=== PATIENT | female | born 1965 | race Caucasian/White ===

== ENCOUNTER 2017-08-25 08:37 | Emergency (ER) | payer OTHER ==
[~2017-08-25] VITALS: Ht 160 cm; Wt 73.5 kg
--- OUTSIDE RECORDS SUMMARY | ~2017-08-25 | XMS | Clinical Summary ---
Demographics + + + | Address | [address] [facility] | | | [place] [address] | + + + | Home Phone | | + + + | Preferred Language | Unknown | + + + | Marital Status | | + + + | Scientologist Affiliation | 1041 | + + + | Race | Unknown | + + + | Ethnic Group | Unknown | + + + Author + + + | Author | [facility] | + + + | Organization | [facility] | + + + | Address | Unknown | + + + | Phone | Unavailable | + + + Support + + +---------+ + | Name | Relationship | Address | Phone | + + +---------+ + | Reginaldo Reese | ECON | Unknown | | + + +---------+ + Care Team Providers + +------+ + | Care Cycle Repairer Name | Role | Phone | + +------+ + | Felipe Banda DO | PP | | + +------+ + Allergies + + + + + + | Active Allergy | Reactions | Severity | Noted | Comments | | | | | Date | | + + + + + + | Codeine | Shortness of Breath, | High | 03/15/20 | sweating | | | Nausea and | | 14 | | | | Vomiting, Other (See | | | | | | Comments) | | | | + + + + + + Current Medications Not on file Active Problems Not on file Social History + +-------+ +--------+------+ | Tobacco Use | Types | Packs/Day | Years | Date | | | | | Used | | + +-------+ +--------+------+ | Never Assessed | | | | | + +-------+ +--------+------+ + + + | Sex Assigned at | Date Recorded | | | | + + + | Not on file | | + + + Last Filed Vital Signs + + + + | Vital Sign | Reading | Time Taken | + + + + | Blood Pressure | - | - | + + + + | Pulse | - | - | + + + + | Temperature | - | - | + + + + | Respiratory Rate | - | - | + + + + | Oxygen Saturation | - | - | + + + + | Inhaled Oxygen | - | - | | Concentration | | | + + + + | Weight | 79.8 kg (176 lb) | 12/20/2015 8:40 AM PDT | + + + + | Height | 160 cm (5' 3") | 12/20/2015 8:40 AM PDT | + + + + | Body Mass Index | 31.18 | 12/20/2015 8:40 AM PDT | + + + + Plan of Treatment Not on file Results Not on filefrom Last 3 Months Insurance +--------+--------+ +------+ +---------+ | Payer | Benefi | Subscriber | Type | Phone | Address | | | t Plan | ID | | | | | | / | | | | | | | Group | | | | | +--------+--------+ +------+ +---------+ | ASURIS | HMA | xxxxxxxxxxx | | [phone] | | | INSURA | [phone] | | | | NCE | | | | | +--------+--------+ +------+ +---------+ + +--------+ +--------+ + + | Guarantor Name | Accoun | Relation to | Date | Phone | Billing Address | | | t Type | Patient | of | | | | | | | | | | + +--------+ +--------+ + + | EMILIA REESE | Person | Self | [birth year] | Home: | [address] [place] [address] | | | al/Fam | | 1966 | [phone] | [place] | | | ace | | | [phone] | [phone] | + +--------+ +--------+ + +
--- OUTSIDE RECORDS SUMMARY | ~2017-08-25 | XMS | Clinical Summary ---
Demographics + + + | Address | [address] | | | [place] [address] | + + + | Home Phone | | + + + | Preferred Language | Unknown | + + + | Marital Status | | + + + | Pentecostalism Affiliation | Unknown | + + + | Race | White | + + + | Ethnic Group | Not or | + + + Author + + + | Author | [facility] | + + + | Organization | [facility] | + + + | Address | Unknown | + + + | Phone | Unavailable | + + + Support + + + + + | Name | Relationship | Address | Phone | + + + + + | ABEL REESE | ECON | [address] | | | | | [place] | | | | | [address] | | + + + + + Care Team Providers + +------+ + | Care Four Horse Hitch Driver Name | Role | Phone | + +------+ + | Horacio Banda DO | PP | | + +------+ + Source Comments GABBY is fully live on both EpicCare Ambulatory and EpicCare InPatient.[facility] Allergies + + + + + + | Active Allergy | Reactions | Severity | Noted | Comments | | | | | Date | | + + + + + + | Codeine | Airway Constriction | | 07/20/19 | | | | | | 15 | | + + + + + + Current Medications + + +-------+---------+------+------+-------+ | Prescription | Sig. | Disp. | Refills | Star | End | Statu | | | | | | t | Date | s | | | | | | Date | | | + + +-------+---------+------+------+-------+ | | Take 1 tablet by | | | | | Activ | | HYDROcodone-acetamin | mouth every four | | | | | e | | ophen 10-325 mg oral | hours as needed. Not | | | | | | | tablet | to exceed 3250 mg | | | | | | | | of acetaminophen | | | | | | | | from all products | | | | | | | | per 24 hour period. | | | | | | + + +-------+---------+------+------+-------+ | pregabalin 50 mg | Take by mouth two | | | | | Activ | | oral capsule | times daily. Max: | | | | | e | | | 600 mg/day | | | | | | + + +-------+---------+------+------+-------+ | LEVOTHYROXINE | Take 150 mg by mouth | | | | | Activ | | SODIUM (SYNTHROID | once daily. | | | | | e | | ORAL) | | | | | | | + + +-------+---------+------+------+-------+ | atenolol 50 mg | Take 50 mg by mouth | | | | | Activ | | oral tablet | once daily. | | | | | e | + + +-------+---------+------+------+-------+ | ERGOCALCIFEROL, | Take by mouth. | | | | | Activ | | VITAMIN D2, (VITAMIN | | | | | | e | | D ORAL) | | | | | | | + + +-------+---------+------+------+-------+ | METFORMIN HCL | Take by mouth. | | | | | Activ | | (METFORMIN ORAL) | | | | | | e | + + +-------+---------+------+------+-------+ | montelukast | Take 4 mg by mouth | | | | | Activ | | chewable 4 mg oral | once daily in the | | | | | e | | tablet,chewable | evening. | | | | | | + + +-------+---------+------+------+-------+ | FLUoxetine 20 mg | Take 20 mg by mouth | | | | | Activ | | oral capsule | once daily. | | | | | e | + + +-------+---------+------+------+-------+ | DIPHENHYDRAMINE | Take by mouth. | | | | | Activ | | HCL (BENADRYL | | | | | | e | | ALLERGY ORAL) | | | | | | | + + +-------+---------+------+------+-------+ | LION/MAG/VITAMIN | Take by mouth. | | | | | Activ | | D2/MV/ZN (LION-MAG | | | | | | e | | ZINC III ORAL) | | | | | | | + + +-------+---------+------+------+-------+ | MELATONIN ORAL | Take by mouth. | | | | | Activ | | | | | | | | e | + + +-------+---------+------+------+-------+ | ALPRAZolam 0.5 mg | Take 0.5 mg by mouth | | | | | Activ | | oral tablet | three times daily | | | | | e | | | as needed. | | | | | | + + +-------+---------+------+------+-------+ Active Problems + + + | Problem | Noted Date | + + + | Psoriasis | 07/19/2014 | + + + Family History + + +------+ + | Medical History | Relation | Name | Comments | + + +------+ + | Cancer | Brother | | thyroid, with two borthers | + + +------+ + | Heart Disease | Grandfath | | | | | er | | | + + +------+ + | Macular degeneration | Grandfath | | | | | er | | | + + +------+ + | Cancer | Mother | | leukemia, breast | + + +------+ + | Cataract | Mother | | | + + +------+ + | Thyroid | Mother | | | + + +------+ + | Diabetes | Other | | | + + +------+ + | Glaucoma | Neg Hx | | | + + +------+ + | Retinal detachment | Neg Hx | | | + + +------+ + + +------+--------+ + | Relation | Name | Status | Comments | + +------+--------+ + | Brother | | | | + +------+--------+ + | Grandfather | | | | + +------+--------+ + | Mother | | | | + +------+--------+ + | Other | | | | + +------+--------+ + Social History + +-------+ +--------+------+ | Tobacco Use | Types | Packs/Day | Years | Date | | | | | Used | | + +-------+ +--------+------+ | Former Smoker | | | | | + +-------+ +--------+------+ + + +---------+ + | Alcohol Use | Drinks/We | oz/Week | Comments | | | ek | | | + + +---------+ + | No | | | | + + +---------+ + + + + | Sex Assigned at | Date Recorded | | | | + + + | Not on file | | + + + Last Filed Vital Signs + + + + | Vital Sign | Reading | Time Taken | + + + + | Blood Pressure | 117/80 | 07/19/2014 3:20 PM PDT | + + + + | Pulse | 74 | 07/19/2014 3:20 PM PDT | + + + + | Temperature | - | - | + + + + | Respiratory Rate | - | - | + + + + | Oxygen Saturation | - | - | + + + + | Inhaled Oxygen | - | - | | Concentration | | | + + + + | Weight | 79.4 kg (175 lb) | 07/19/2014 3:20 PM PDT | + + + + | Height | 160 cm (5' 3") | 07/19/2014 3:20 PM PDT | + + + + | Body Mass Index | 31 | 07/19/2014 3:20 PM PDT | + + + + Plan of Treatment + + + + + | Health Maintenance | Due Date | Last Done | Comments | + + + + + | INFLUENZA VACCINE | | | | | (FLU SHOT) | 8 | | | + + + + + Results Not on filefrom Last 3 Months
--- OUTSIDE RECORDS SUMMARY | ~2017-08-25 | XMS | Clinical Summary ---
Demographics + + + | Address | [address] | | | [place] [address] | + + + | Home Phone | | + + + | Preferred Language | Unknown | + + + | Marital Status | | + + + | Mandaen Affiliation | 1041 | + + + | Race | Unknown | + + + | Ethnic Group | Unknown | + + + Author + + + | Author | [facility] | | | and [place] | + + + | Organization | [facility] | | | and [place] | + + + | Address | Unknown | + + + | Phone | Unavailable | + + + Support + + + + + | Name | Relationship | Address | Phone | + + + + + | Dorcas Riley ECON | [place], | | | | | [place] | | + + + + + | Reginaldo Reese | ECON | [address] | | | | | [place] | | | | | [address] | | + + + + + Care Team Providers + +------+ + | Care Multi Township Assessor Name | Role | Phone | + +------+ + | Horacio Banda DO | PP | Unavailable | + +------+ + Allergies + + + + + + | Active Allergy | Reactions | Severity | Noted | Comments | | | | | Date | | + + + + + + | Codeine | Diarrhea, Nausea And | High | 06/02/19 | | | | Vomiting | | 14 | | + + + + + + Current Medications + + +-------+---------+------+------+-------+ | Prescription | Sig. | Disp. | Refills | Star | End | Statu | | | | | | t | Date | s | | | | | | Date | | | + + +-------+---------+------+------+-------+ | atenolol | Take 75 mg by mouth | | | | | Activ | | (TENORMIN) 50 mg | Daily. | | | | | e | | tablet | | | | | | | + + +-------+---------+------+------+-------+ | | Take 1 tablet by | | | | | Activ | | Xosuhzg-Kmjzaxosb-Ny | mouth Daily. | | | | | e | | nc 500-250-12.5 MG | | | | | | | | TABS | | | | | | | + + +-------+---------+------+------+-------+ | Coenzyme Q10 (CO Q | Take 100 mg by mouth | | | | | Activ | | 10) 100 MG CAPS | Daily. | | | | | e | + + +-------+---------+------+------+-------+ | FLUoxetine | Take 20 mg by mouth | | | | | Activ | | (PROZAC) 20 mg | Daily. | | | | | e | | capsule | | | | | | | + + +-------+---------+------+------+-------+ | fluticasone | 2 sprays by Nasal | | | | | Activ | | (FLONASE) 50 | route Daily. | | | | | e | | mcg/nasal spray | | | | | | | + + +-------+---------+------+------+-------+ | pregabalin | Take 50 mg by mouth | | | | | Activ | | (LYRICA) 50 MG | Daily as needed. | | | | | e | | capsule | | | | | | | + + +-------+---------+------+------+-------+ | metformin | Take 500 mg by mouth | | | | | Activ | | (GLUMETZA) 500 MG 24 | daily (with | | | | | e | | hr tablet | breakfast). | | | | | | + + +-------+---------+------+------+-------+ | albuterol (PROAIR | Inhale 2 puffs into | | | | | Activ | | HFA) 90 mcg/puff | the lungs every 4 | | | | | e | | inhaler | hours as needed. | | | | | | + + +-------+---------+------+------+-------+ | montelukast | Take 10 mg by mouth | | | | | Activ | | (SINGULAIR) 10 mg | Daily. | | | | | e | | tablet | | | | | | | + + +-------+---------+------+------+-------+ | cholecalciferol | Take 1,000 Units by | | | | | Activ | | (VITAMIN D-3) 1,000 | mouth Daily. | | | | | e | | units tablet | | | | | | | + + +-------+---------+------+------+-------+ | ALPRAZolam (XANAX) | Take 0.5 mg by mouth | | | | | Activ | | 0.5 mg tablet | 3 times daily as | | | | | e | | | needed. | | | | | | + + +-------+---------+------+------+-------+ | Levothyroxine | Take by mouth every | | | | | Activ | | Sodium 125 MCG CAPS | morning (before | | | | | e | | | breakfast). | | | | | | + + +-------+---------+------+------+-------+ Active Problems No known active problems Family History + + +------+ + | Medical History | Relation | Name | Comments | + + +------+ + | Thyroid cancer | Brother | | | + + +------+ + | Thyroid cancer | Brother | | | + + +------+ + + +------+--------+ + | Relation | Name | Status | Comments | + +------+--------+ + | Brother | | | | + +------+--------+ + | Brother | | | | + +------+--------+ + Social History + +-------+ +--------+------+ | Tobacco Use | Types | Packs/Day | Years | Date | | | | | Used | | + +-------+ +--------+------+ | Current Every Day | | | | | | Smoker | | | | | + +-------+ +--------+------+ + +---+---+---+ | Smokeless Tobacco: | | | | | Never Used | | | | + +---+---+---+ + + + | Sex Assigned at [...] + + + + | Weight | 70.3 kg (155 lb) | 06/30/20131609 PST | + + + + | Height | 157.5 cm (5' 2") | 06/30/20131609 PST | + + + + | Body Mass Index | 28.35 | 06/30/2013 1610 PST | + + + + Plan of Treatment + + + + + | Health Maintenance | Due Date | Last Done | Comments | + + + + + | Vaccine: | | | | | Dtap/Tdap/Td (1 - | 6 | | | | Tdap) | | | | + + + + + | Vaccine: | | | | | Pneumococcal 19-64 | 6 | | | | (PPSV23 only) Medium | | | | | Risk (1 of 1 - | | | | | PPSV23) | | | | + + + + + | CERVICAL CANCER | | | | | SCREENING (PAP EVERY | 8 | | | | 3 YEARS 21-64 ) | | | | + + + + + | BREAST CANCER | | | | | SCREENING (MAMM Q2 | 7 | | | | YEARS 50-74) | | | | + + + + + | COLON CANCER | | | | | SCREENING | 7 | | | | (COLONOSCOPY EVERY | | | | | 10 YEARS 50-75) | | | | + + + + + | Vaccine: Influenza | | | | | (Season Ended) | 8 | | | + + + + + Results Not on filefrom Last 3 Months Insurance + +--------+ +------+ +---------+ | Payer | Benefi | Subscriber | Type | Phone | Address | | | t Plan | ID | | | | | | / | | | | | | | Group | | | | | + +--------+ +------+ +---------+ | HEALTHCARE [employer] | HMA | xxxxxxxxxxx | PPO | [phone] | | | ADMIN | BCBS | [phone] | [phone] | | | | PPO | | | | | + +--------+ +------+ +---------+ + +--------+ +--------+ + + | Guarantor Name | Accoun | Relation to | Date | Phone | Billing Address | | | t Type | Patient | of | | | | | | | | | | + +--------+ +--------+ + + | EMILIA REESE | Person | Self | [birth year] | Work: | [address] | | [address] [address] | | 1965 | +- | [place] | | | ace | | | [address] Home: | [phone] | | | | | | | | | | | | [phone] | | | | | | | [address] | | + +--------+ +--------+ + +
--- OUTSIDE RECORDS SUMMARY | ~2017-08-25 | XMS | Clinical Summary ---
Demographics + + + | Address | [address] | | | [place] [address] | + + + | Home Phone | | + + + | Preferred Language | Unknown | + + + | Marital Status | | + + + | Synagogue Affiliation | 1041 | + + + | Race | Unknown | + + + | Ethnic Group | Unknown | + + + Author + + + | Author | [facility] | + + + | Organization | [facility] | + + + | Address | Unknown | + + + | Phone | Unavailable | + + + Support + + +---------+ + | Name | Relationship | Address | Phone | + + +---------+ + | Reginaldo Reese | ECON | Unknown | | + + +---------+ + Care Team Providers + +------+ + | Care Head Golf Professional Name | Role | Phone | + [...] | Self | [birth year] | Home: | [address] [place] [address] | | | al/Fam | | 1966 | [phone] | [place] | | | ace | | | [phone] | [phone] | + +--------+ +--------+ + +
--- OUTSIDE RECORDS SUMMARY | ~2017-08-25 | XMS | Clinical Summary ---
Demographics + + + | Address | [address] | | | [place] [address] | + + + | Home Phone | | + + + | Preferred Language | Unknown | + + + | Marital Status | | + + + | Presybeterian Affiliation | 1041 | + + + | Race | Unknown | + + + | Ethnic Group | Unknown | + + + Author + + + | Author | [facility] | | | and [place] | + + + | Organization | [facility] | | | [...] [place] | | | | | [address] | | + + + + + Care Team Providers + +------+ + | Care Xm1 Tank Driver Name | Role | Phone | [...] | | | | Activ | | Lzamces-Ipxzutxkv-Mp | mouth Daily. | | | | [...] | HMA | [phone] | PPO | [phone] | | | ADMIN | BCBS | [...] ace | | | [address] Home: | [phone] | | | | | | | | | | | | [phone] | | | | | | | [address] | | + +--------+ +--------+ + +
--- OUTSIDE RECORDS SUMMARY | ~2017-08-25 | XMS | Clinical Summary ---
Demographics + + + | Address | [address] | | | [place] [address] | + + + | Home Phone | | + + + | Preferred Language | Unknown | + + + | Marital Status | | + + + | [employer] Affiliation | Unknown | + + + [...] [place] | | | | | [address] | | + + + + + Care Team Providers + +------+ + | Care Agricultural Equipment Test Engineer Name | Role | Phone | + +------+ + | Horacio Banda DO | PP | | + +------+ + Source Comments GABBY is fully live on both EpicCare Ambulatory and EpicCare InPatient.[facility] Allergies + + + + + + [...]
[2017-08-25] MEDS ORDERED: SYNTHROID175 MCG PO (09:21)
[2017-08-25] MEDS ORDERED: ZITHROMAX250 MG PO (09:21)
[2017-08-25] MEDS ORDERED: ALPRAZOLAM1 MG PO (09:21)
[2017-08-25] MEDS ORDERED: CELECOXIB200 MG PO (09:22)
[2017-08-25] MEDS ORDERED: FLUOXETINE HCL20 MG PO (09:22)
[2017-08-25] MEDS ORDERED: HYDROCODON-ACE1 EAC8 PO (09:22)
[2017-08-25] MEDS ORDERED: METFORMIN HCL500 M1 PO (09:22)
[2017-08-25] MEDS ORDERED: ATENOLOL50 MG PO (09:22)
[2017-08-25] MEDS ORDERED: LYRICA150 MG PO (09:22)
[2017-08-25] MEDS ORDERED: TIZANIDINE HCL4 M1 PO (09:23)
[2017-08-25] MEDS ORDERED: MONTELUKAST SOD10 MG PO (09:23)
[2017-08-25] MEDS ORDERED: CYCLOBENZAPRINE5 MG PO (10:26)
--- NOTE | 2017-08-26 07:35 | EKG ---
[facility] [address] [facility] [place] [address] Signed Normal sinus rhythm Nonspecific T wave abnormality Abnormal ECG No previous ECGs available Confirmed by OSMANY WETZEL MD ([id number]) on 08/26/2017 7:34:50 AM Electronically Signed By: OSMANY WETZEL MD 08/26/17 0735 PATIENT NAME: RICKY SYED Electrocardiogram DATE OF : 67 PHYSICIAN: OSMANY WETZEL MD REPORT #: [id number] REPORT IS CONFIDENTIAL AND NOT TO BE RELEASED WITHOUT AUTHORIZATION
== END 2017-08-25 10:40 | disposition home or self-care (01) ==
LOC: ED 08:37
DX: R07.89 Other chest pain (principal); Z88.5 Allergy status to narcotic agent; Z79.899 Other long term (current) drug therapy
CPT/HCPCS: 71045; 80053; 84484; 85025; 85379; 93005; 93010; 96374; 99284; J1885

== ENCOUNTER 2017-12-15 12:45 | Day surgery (SDC) | payer OTHER ==
[~2017-12-15] VITALS: Ht 160 cm; Wt 80.3 kg
--- NOTE | ~2017-12-15 | OR ---
[facility] [address] [facility] [place], [place] [address] Draft DATE OF OPERATION: 12/15/2017 SURGEON: Jakob Reaves MD PREOPERATIVE DIAGNOSIS: Colon screening. POSTOPERATIVE DIAGNOSIS: Normal colon to cecum except for a few scattered diverticula. PROCEDURE: Total colonoscopy to cecum. ANESTHESIA: Intravenous sedation fentanyl 200 mcg, Versed 13 mg. INDICATION: This 52-year-old white woman is a patient of Dr. Keller and referred for colon screening. She has no family history of colon cancer and symptom free. She understands the risks of bleeding, infection, and perforation related to colonoscopy and wished to proceed. FINDINGS: The prep was adequate with irrigation, but certainly not great. Complete colonoscopy was undertaken and good visualization of mucosa throughout was undertaken, though she required a fair amount of irrigation as there was a rosalina type of fluid within the colon still. There was no evidence of colitis or polyps or cancer. She did have a few scattered diverticula, but no other findings of concern. It would be considered normal overall. DESCRIPTION OF PROCEDURE: The patient was brought to the endoscopy suite and placed in lateral decubitus position given intravenous sedation to the point of slurred speech and nystagmus. Digital rectal examination was normal. An Olympus video colonoscope was passed in the rectum and manipulated throughout the colon ultimately intubating the right colon and approximately cecum. Irrigation was undertaken as necessary throughout the colonoscopy due to a prep that was well followed, but result was less than hope for. A biopsy forceps was used to withdraw the mucosa of the cecum to better examine. There was no evidence of abnormality behind the ileocecal PATIENT NAME: RICKY SYED OPERATIVE REPORT DATE OF : 67 REPORT #: [id number] PHYSICIAN: JAKOB REAVES MD PCP: FELIPE KELLER DO REPORT IS CONFIDENTIAL AND NOT TO BE RELEASED WITHOUT AUTHORIZATION [facility] [address] [place], [place] [address] Draft valve. The scope was carefully withdrawn from that point and examination throughout undertaken. There was no evidence of polyps, but she did have a few diverticula scattered throughout the colon. Retroflexed view of the rectum was normal. The scope was removed and the patient taken to recovery room in good condition. CONCLUDING DIAGNOSIS: Essentially normal colon, a few scattered diverticula. PLAN: Recommend high-fiber diet and repeat colonoscopy in 10 years sooner if clinically indicated. She will return to the ongoing care of Dr. Keller. MD CHANTELLE Corrigan/YASH /[id number] cc: Felipe Keller DO Copies: FELIPE KELLER DO ~ PATIENT NAME: RICKY SYED OPERATIVE REPORT DATE OF : 67 REPORT #: [id number] PHYSICIAN: JAKOB REAVES MD PCP: FELIPE KELLER DO REPORT IS CONFIDENTIAL AND NOT TO BE RELEASED WITHOUT AUTHORIZATION
[~2017-12-15 12:45] MED LIST: ALPRAZOLAM1 MG PO; ATENOLOL50 MG PO; CELECOXIB200 MG PO; CYCLOBENZAPRINE5 MG PO; FLUOXETINE HCL20 MG PO; HYDROCODON-ACE1 EAC8 PO; LYRICA150 MG PO; METFORMIN HCL500 M1 PO; MONTELUKAST SOD10 MG PO; SYNTHROID175 MCG PO; TIZANIDINE HCL4 M1 PO; ZITHROMAX250 MG PO
--- NOTE | 2017-12-15 14:50 | NUR ---
12/15/17 1450 Jaclyn Adamson 1438 PT ARRIVED IN PACU SLEEPY WITH NO C/O'S. ABD SOFT. 1445 OXYGEN REMOVED. SATS 97% ON RA. 1450 SITTING UP IN BED SIPPING ON WATER.
== END 2017-12-15 15:10 | disposition home or self-care (01) ==
LOC: DS 12:45 → OPS 12:45 → DS 14:15 → OPS 15:10
PROVIDERS: Surgery
PROC: 0DJD8ZZ Inspection of Lower Intestinal Tract, Via Natural or Artificial Opening Endoscopic (ICD-10-PCS; principal; 2017-12-15 14:15)
DX: Z12.11 Encounter for screening for malignant neoplasm of colon (principal); K57.30 Diverticulosis of large intestine without perforation or abscess without bleeding; J45.909 Unspecified asthma, uncomplicated; F32.9 Major depressive disorder, single episode, unspecified; E11.9 Type 2 diabetes mellitus without complications; I10 Essential (primary) hypertension; E03.9 Hypothyroidism, unspecified; Z88.5 Allergy status to narcotic agent; Z88.8 Allergy status to other drugs, medicaments and biological substances; Z87.891 Personal history of nicotine dependence; Z85.850 Personal history of malignant neoplasm of thyroid; Z85.820 Personal history of malignant melanoma of skin
CPT/HCPCS: 99153; G0500; J2250; J3010; J7120

== ENCOUNTER 2018-07-01 00:20 | Emergency (ER) | payer SELFPAY ==
[~2018-07-01] VITALS: Ht 160 cm; Wt 76.2 kg
--- OUTSIDE RECORDS SUMMARY | 2018-07-01 00:22 | XMS ---
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 Kel VISIT COUNT (12 MO.) 2 [facility]IG[facility] [place] TOTAL 2 NOTE: Visits indicate total known visits. ED/UCC VISIT TRACKING (12 MO.) 07/01/2018 00:21 [facility] [place] [facility] [place] TYPE: Emergency COMPLAINT: - VOMITING 08/25/2017 08:38 [facility] [place] [facility] [place] TYPE: Emergency COMPLAINT: - L SHOULDER/CHEST PAIN DIAGNOSES: - Other chest pain - Other rn long term care (current) drug therapy - Chest pain, unspecified - Allergy status to narcotic agent status INPATIENT VISIT TRACKING (12 MO.) No inpatient visits to display in this time frame [id number]
== END 2018-07-01 03:49 | disposition home or self-care (01) ==
LOC: ED 00:20
DX: K52.9 Noninfective gastroenteritis and colitis, unspecified (principal); I10 Essential (primary) hypertension; Z87.891 Personal history of nicotine dependence; Z88.5 Allergy status to narcotic agent; Z88.8 Allergy status to other drugs, medicaments and biological substances; Z79.899 Other long term (current) drug therapy; Z79.84 Long term (current) use of oral hypoglycemic drugs
CPT/HCPCS: 74177; 80053; 81001; 83690; 84703; 85025; 96361; 99284-25; J2270; J2405; J2550; J7030; Q9967